=== PATIENT | female | born 1960 ===

== ENCOUNTER 2024-01-17 14:08 | Outpatient (CLI) | payer OTHER, SELFPAY | END 2024-01-17 14:09 | disposition home or self-care (01) | PROVIDERS: PCP Family Medicine; Visit Provider Family Medicine | DX: E03.9 Hypothyroidism, unspecified (principal); Z13.228 Encounter for screening for other metabolic disorders; Z13.220 Encounter for screening for lipoid disorders | CPT/HCPCS: 80053; 80061; 84439; 84443 ==

== ENCOUNTER 2024-04-10 14:02 | Outpatient (CLI) | payer OTHER, SELFPAY | END 2024-04-10 14:03 | disposition home or self-care (01) | LOC: FRMREF 14:02 | PROVIDERS: PCP Family Medicine; Visit Provider Family Medicine | DX: E03.9 Hypothyroidism, unspecified (principal); E66.9 Obesity, unspecified | CPT/HCPCS: 84439; 84443 ==

== ENCOUNTER 2024-05-31 16:00 | Outpatient (CLI) | payer OTHER, SELFPAY | END 2024-05-31 16:01 | disposition home or self-care (01) | LOC: NFLDREF 06-03 23:15 | PROVIDERS: PCP Family Medicine; Referring Provider Family Medicine; Visit Provider Family Medicine | DX: E03.9 Hypothyroidism, unspecified (principal) | CPT/HCPCS: 84439; 84443 ==

== ENCOUNTER 2024-07-14 10:10 | Outpatient (CLI) | payer OTHER, SELFPAY | END 2024-07-14 10:11 | disposition home or self-care (01) | LOC: NFLDREF 18:14 | PROVIDERS: PCP Family Medicine; Referring Provider Family Medicine; Visit Provider Family Medicine | DX: E03.9 Hypothyroidism, unspecified (principal) | CPT/HCPCS: 84439; 84443 ==

== ENCOUNTER 2024-10-10 16:18 | Outpatient (CLI) | payer OTHER, SELFPAY | END 2024-10-10 16:19 | disposition home or self-care (01) | LOC: NFLDREF 10-12 06:43 | PROVIDERS: PCP Family Medicine; Referring Provider Family Medicine; Visit Provider Family Medicine | DX: E03.9 Hypothyroidism, unspecified (principal) | CPT/HCPCS: 84439; 84443 ==

== ENCOUNTER 2025-02-01 10:52 | Outpatient (CLI) | payer OTHER, SELFPAY | END 2025-02-01 10:53 | disposition home or self-care (01) | PROVIDERS: PCP Family Medicine; Referring Provider Family Medicine; Visit Provider Family Medicine | DX: E03.9 Hypothyroidism, unspecified (principal) | CPT/HCPCS: 84443 ==

== ENCOUNTER 2025-04-02 08:14 | Outpatient (CLI) | payer OTHER, SELFPAY ==
--- NOTE | 2025-04-02 09:44 | P.ANES_ITS ---
Anesthesia Charges Start Date/Time Anesthesia Start Date: 04/02/25 Anesthesia Start Time: 09:00 Stop Date/Time Anesthesia Stop Date: 04/02/25 Anesthesia Stop Time: 09:23 Coding CPT Codes CPT Codes: BINDU LWR INTST NDSC NOS - [id number] ([id number]) QK - ENGRAVING OPERATOR 2-4 CNCRNT BINDU PROC, QX - JUVENILE COURT LIAISON SVC W/ MD MED DIRECTION, P2 - PATIENT W/MILD SYST DISEASE
--- NOTE | 2025-04-02 09:44 | W.ANESCHARGE ---
Anesthesia Charges Start Date/Time Anesthesia Start Date: 04/02/25 Anesthesia Start Time: 09:00 Stop Date/Time Anesthesia Stop Date: 04/02/25 Anesthesia Stop Time: 09:23 Coding CPT Codes CPT Codes: BINDU LWR INTST NDSC NOS - [id number] ([id number]) QK - DRAMATIC ARTS HISTORIAN 2-4 CNCRNT BINDU PROC, QX - ASSOCIATE PROFESSOR SVC W/ MD MED DIRECTION, P2 - PATIENT W/MILD SYST DISEASE
--- NOTE | 2025-04-02 10:00 | P.ANES_ITS ---
Anesthesia Charges Start Date/Time Anesthesia Start Date: 04/02/25 Anesthesia Start Time: 09:00 Stop Date/Time Anesthesia Stop Date: 04/02/25 Anesthesia Stop Time: 09:23 Coding CPT Codes CPT Codes: BINDU ANDERSON INTST NDSC NOS - [id number] ([id number]) P2 - PATIENT W/MILD SYST DISEASE, QX - MEDICAL SPECIALIST SVC W/ MD MED DIRECTION, QK - PERCOLATOR OPERATOR 2-4 CNCRNT ANERamy PROC
--- NOTE | 2025-04-02 10:00 | W.ANESCHARGE ---
Anesthesia Charges Start Date/Time Anesthesia Start Date: 04/02/25 Anesthesia Start Time: 09:00 Stop Date/Time Anesthesia Stop Date: 04/02/25 Anesthesia Stop Time: 09:23 Coding CPT Codes CPT Codes: BINDU ANDERSON INTST NDSC NOS - [id number] ([id number]) P2 - PATIENT W/MILD SYST DISEASE, QX - DIGITAL CAMPAIGN MANAGER SVC W/ MD MED DIRECTION, QK - MORTGAGE LENDER 2-4 CNCRNT ANERamy PROC
== END 2025-04-02 08:15 | disposition home or self-care (01) ==
LOC: OP CLINIC 08:15
PROVIDERS: PCP Family Medicine; Visit Provider Internal Medicine
DX: Z12.11 Encounter for screening for malignant neoplasm of colon (principal); D12.2 Benign neoplasm of ascending colon; K64.8 Other hemorrhoids
CPT/HCPCS: 00811; 00812; 45380; 88305; J2704

== ENCOUNTER 2025-06-15 11:22 | Outpatient (CLI) | payer OTHER, SELFPAY | END 2025-06-15 11:23 | disposition home or self-care (01) | LOC: NFLDREF 06-18 19:00 | PROVIDERS: PCP Family Medicine; Referring Provider Family Medicine; Visit Provider Family Medicine | DX: Z00.00 Encounter for general adult medical examination without abnormal findings (principal); E03.9 Hypothyroidism, unspecified | CPT/HCPCS: 80053; 80061; 84443 ==

== ENCOUNTER 2025-07-02 18:05 | Outpatient (CLI) | payer OTHER, SELFPAY ==
[2025-07-06 09:12] LABS: HPV Source Endocervical
[2025-07-06 09:40] LABS: Pap Test Digital Imaging Done
== END 2025-07-02 18:06 | disposition home or self-care (01) ==
PROVIDERS: PCP Family Medicine; Visit Provider Family Medicine
DX: Z12.4 Encounter for screening for malignant neoplasm of cervix (principal)
CPT/HCPCS: 87624; 87625; 88141; 88142; 88175